=== PATIENT | female | born 1975 | race African-American/Black ===

== ENCOUNTER 2020-12-05 14:32 | Outpatient (CLI) | payer OTHER | END 2020-12-05 14:33 | disposition home or self-care (01) | LOC: CSHMAMMO 14:32 | PROVIDERS: ATTEND Family Medicine | DX: Z12.31 Encounter for screening mammogram for malignant neoplasm of breast (principal) | CPT/HCPCS: 77063; 77067 ==

== ENCOUNTER 2021-08-23 14:45 | Outpatient (CLI) | payer OTHER ==
[2021-08-23 16:16] LABS: BHCG - Serum Negative (NEGATIVE); Pregs Control Background? CLEAR/WHITE (CLR/WHITE); Pregs Control Bar Appear? YES (CONTROL BAR)
[2021-08-23 16:24] LABS: Hemoglobin 10.1 g/dL (12.0-15.5); Mean Corpuscular HGB CONC 29.4 g/dL (32.0-36.0); Mean Corpuscular Hemoglobin 21.2 pg (27.0-33.0); Mean Corpuscular Volume 71.9 fl (81.6-98.3); Mean Platelet Volume 9.9 fl (7.4-10.4); Platelet Count 426 10x3/uL (150-450); RBC Distribution Width 17.9 % (11.5-14.5); Red Blood Cell (RBC) Count 4.77 10x6/uL (3.90-5.03); White Blood Cell (WBC) Count 5.8 10x3/uL (3.5-10.5)
[2021-08-24 12:10] LABS: SARS-CoV-2 PCR by NAA Not Detected (NotDetected)
== END 2021-08-23 14:46 | disposition home or self-care (01) ==
LOC: CSHLAB 14:45
PROVIDERS: ATTEND Obstetrics & Gynecology
DX: Z01.812 Encounter for preprocedural laboratory examination (principal); Z20.822 Contact with and (suspected) exposure to COVID-19; D25.9 Leiomyoma of uterus, unspecified
CPT/HCPCS: 84703; 85027; 86850; 86900; 86901; U0003; U0005

== ENCOUNTER 2021-08-28 06:58 | Inpatient (IN) | payer OTHER ==
[2021-08-21 15:55] VITALS: BMI 42.9
[2021-08-23 16:16] LABS: BHCG - Serum Negative (NEGATIVE); Pregs Control Background? CLEAR/WHITE (CLR/WHITE); Pregs Control Bar Appear? YES (CONTROL BAR)
[2021-08-23 16:24] LABS: Hemoglobin 10.1 g/dL (12.0-15.5); Mean Corpuscular HGB CONC 29.4 g/dL (32.0-36.0); Mean Corpuscular Hemoglobin 21.2 pg (27.0-33.0); Mean Corpuscular Volume 71.9 fl (81.6-98.3); Mean Platelet Volume 9.9 fl (7.4-10.4); Platelet Count 426 10x3/uL (150-450); RBC Distribution Width 17.9 % (11.5-14.5); Red Blood Cell (RBC) Count 4.77 10x6/uL (3.90-5.03); White Blood Cell (WBC) Count 5.8 10x3/uL (3.5-10.5)
[2021-08-24 12:10] LABS: SARS-CoV-2 PCR by NAA Not Detected (NotDetected)
[2021-08-28] MEDS ORDERED: CeleCOXIB 100 MG CAP ONE (07:07)
[2021-08-28] MEDS ORDERED: Gabapentin 300 MG CAP ONE (07:07)
[2021-08-28] MEDS ORDERED: Lidocaine 1% MPF 2 ML VIAL ONE (07:08)
[2021-08-28] MEDS ORDERED: Famotidine/PF 20 mg/2ml Vial ONE (07:08)
[2021-08-28] MEDS ORDERED: Lidocaine 4% Topical Sol 50 ML BOT ONE (07:59)
[2021-08-28] MEDS ORDERED: Midazolam HCl 2 mg/2 ml Vial ONE ×2 (08:02→08:35)
[2021-08-28] MEDS ORDERED: PROPOFOL 20 ML ONE (08:02)
[2021-08-28] MEDS ORDERED: Fentanyl 250 MCG/5 ML VIAL ONE (08:02)
[2021-08-28] MEDS ORDERED: Glycopyrrolate 0.2 MG/ML 5 ML SYRINGE ONE (08:03)
[2021-08-28] MEDS ORDERED: Rocuronium Bromide 10 MG/ML (10ML VIAL) ONE (08:03)
[2021-08-28] MEDS ORDERED: Lidocaine 1% PF 5 ML VIAL ONE (08:03)
[2021-08-28] MEDS ORDERED: Dexamethasone 4 mg/ml Vial ONE (08:03)
[2021-08-28] MEDS ORDERED: Ketorolac Tromethamine 30 MG/ML VIAL ONE (08:03)
[2021-08-28] MEDS ORDERED: Ondansetron PF 4 MG/2 ML Vial ONE (08:03)
[2021-08-28] MEDS ORDERED: EPINEPHrine 1 MG/ML AMP ONE (08:10)
[2021-08-28] MEDS ORDERED: Bupivacaine PF 0.5% 30 ML VIAL ONE (08:10)
[2021-08-28] MEDS ORDERED: ceFAZolin 2 GM/Dextrose 50 ML IVPB ONE (08:37)
[2021-08-28] MEDS ORDERED: ePHEDrine Sulfate 50 MG/10 ML VIAL ONE (09:16)
[2021-08-28] MEDS ORDERED: Zolpidem Tartrate 5 MG TAB PO PRN (11:15)
[2021-08-28] MEDS ORDERED: diphenhydrAMINE 50 MG/ML VIAL IM/IV PRN (11:15)
[2021-08-28] MEDS ORDERED: diphenhydrAMINE 25 MG CAP PO PRN (11:15)
[2021-08-28] MEDS ORDERED: Promethazine HCl 25 MG/ML VIAL IM PRN ×2 (11:15→12:41)
[2021-08-28] MEDS ORDERED: Ondansetron PF 4 MG/2 ML Vial IVP PRN ×2 (11:15→12:41)
[2021-08-28] MEDS ORDERED: Naloxone HCl 0.4 mg/ml Vial IV PRN (11:15)
[2021-08-28] MEDS ORDERED: fentaNYL Citrate/PF 1,000 MCG, Admixture Fee 1 EACH in Sodium Chloride 0.9% 30 ML IV PRN ×2 (11:15)
[2021-08-28] MEDS: Sodium Chloride 0.9% 1,000 ML IV SCH ×2 (13:55→21:05)
[2021-08-28] MEDS: Ketorolac Tromethamine 30 MG/ML VIAL IVP PRN ×2 (16:26→22:18)
[2021-08-28] MEDS: Simethicone Chewable 80 MG TAB PO PRN (21:05)
[2021-08-29] MEDS: Sodium Chloride 0.9% 1,000 ML IV SCH (03:09)
[2021-08-29 04:49] LABS: Hemoglobin 8.6 g/dL (12.0-15.5); Mean Corpuscular Hemoglobin 21.1 pg (27.0-33.0); Mean Corpuscular Volume 70.5 fl (81.6-98.3); Mean Platelet Volume 9.9 fl (7.4-10.4); Platelet Count 316 10x3/uL (150-450); RBC Distribution Width 17.8 % (11.5-14.5); Red Blood Cell (RBC) Count 4.07 10x6/uL (3.90-5.03)
[2021-08-29] MEDS ORDERED: Ascorbic Acid 500 mg Chewable Tablet PO SCH (09:00)
[2021-08-29] MEDS ORDERED: Multivitamin W/ Minerals 1 TAB PO SCH (09:00)
[2021-08-29] MEDS ORDERED: HYDROcodone/Acetaminophen 5/325 mg Tablet PO PRN (10:27)
[2021-08-29] MEDS: HYDROcodone/Acetaminophen 5/325 mg Tablet PO PRN ×2 (12:10→18:28)
[2021-08-29] MEDS: Simethicone Chewable 80 MG TAB PO PRN (12:13)
[2021-08-30] MEDS: HYDROcodone/Acetaminophen 5/325 mg Tablet PO PRN ×2 (00:44→07:32)
[2021-08-30] MEDS: Simethicone Chewable 80 MG TAB PO PRN (00:48)
[2021-08-30 07:51] VITALS: BP 165/84; TEMP 97.6
== END 2021-08-30 07:45 | disposition home or self-care (01) | DRG 742 ==
LOC: CSHSDC 06:58 → CSHPED 12:10
PROVIDERS: ADMIT Obstetrics & Gynecology; ATTEND Obstetrics & Gynecology
PROC: 0UT90ZZ Resection of Uterus, Open Approach (ICD-10-PCS; principal; 2021-08-28)
PROC: 0UT70ZZ Resection of Bilateral Fallopian Tubes, Open Approach (ICD-10-PCS; 2021-08-28)
DX: D25.9 Leiomyoma of uterus, unspecified (principal); Z68.1 Body mass index [BMI] 19.9 or less, adult; E66.01 Morbid (severe) obesity due to excess calories; N92.0 Excessive and frequent menstruation with regular cycle; K66.0 Peritoneal adhesions (postprocedural) (postinfection); Z20.822 Contact with and (suspected) exposure to COVID-19
CPT/HCPCS: 36415; 84703; 85027; 86850; 86900; 86901; 88307; J0171; J0690; J1100; J1885; J2250; J2405; J2704; J3010; J3490; J7050; S0020; S0028; U0003; U0005